=== PATIENT | female | born 1965 | race Caucasian/White ===

== ENCOUNTER 2016-08-09 09:11 | Observation (INO) | payer OTHER ==
--- NOTE | ~2016-08-09 | OR ---
Unit #: [id number] #: [id number] Patient: MIGDALIA TONY [id number] [facility]. [place], [place] [address] [id number] MR#: [id number] NAME: MIGDALIA TONY ROOM: 462 Date of Procedure: 08/09/2016 Admission Date: 08/09/2016 Surgeon: Oliverio Hollingsworth Jr., M.D. : 1965 Attending Physician: Oliverio Hollingsworth Jr., M.D. Referring Physician: Oliverio Hollingsworth Jr., M.D. Primary Care Physician: Samantha Guevara Aprn OPERATIVE REPORT INDICATIONS FOR PROCEDURE The patient is a 51-year-old white female, recently was noted to have some nodular areas in the left lobe of the thyroid and biopsy was taken, which was indeterminate. It was felt by the patient and me that she should probably have left lobectomy to be sure about the fact there is no cancer present. She is brought in this time at her request for this procedure. She understands the procedure including the risks, including that of injury to the recurrent laryngeal nerve with chronic hoarseness, bleeding, poor healing, and consents. PREOPERATIVE DIAGNOSIS Nodular mass of the left lobe of the thyroid, rule out occult malignancy. POSTOPERATIVE DIAGNOSIS Nodular mass of the left lobe of the thyroid, rule out occult malignancy, noting multiple small cystic areas. ANESTHESIA General with endotracheal intubation and 0.5% Marcaine with epinephrine locally. [employer] Pamela Hyde. PROCEDURE PERFORMED Left thyroid lobectomy. DESCRIPTION OF PROCEDURE The patient was positioned in supine position. After being anesthetized and intubated, she was prepped and draped in routine fashion for left thyroid lobectomy. A curvilinear incision was made approximately 2 fingerbreadths above the sternal notch and a crease in the skin 4 to 5 inches in length. This was carried down through the subcutaneous tissue through the platysma with the superior and inferior flaps being developed in routine fashion with #10 blade scalpel. A small amount of oozing was controlled with the Bovie cautery. The strap muscles were elevated from both lobes. The right lobe was palpated and felt to be normal. The left lobe had nodularity. The superior polar vessels were then hemoclipped and divided and the inferior polar vessels hemoclipped and divided, and the middle thyroid vein hemoclipped and divided. The thyroid was delivered up through the wound and the recurrent laryngeal nerve was well behind it in Unit #: [id number] #: [id number] Patient: MIGDALIA TONY the esophagotracheal sulcus. The inferior thyroid artery was hemoclipped and divided and the isthmus then divided and the specimen removed and sent to pathology. Hemostasis was checked for, there was no evidence of any bleeding. The clips were all intact with no evidence of any problems. One adrenal gland in the superior area was left intact. There was none seen on the inferior polar area. After hemostasis was again noted, the wound was irrigated. Small Brendan drain was placed in deeper aspect of the wound and brought out through the lateral aspect of the wound on the left. Midline was closed with a continuous 3-0 Vicryl suture and the platysma and subcutaneous tissue closed with interrupted 3-0 Vicryl sutures. Skin edges were approximated with stainless-steel skin clips and skin stapling device. Sterile dressings were applied externally. Estimated blood loss less than 50 mL. The patient received less than 1000 mL crystalloid solution during the procedure. Sponges and instrument counts were correct x3. There was 1 small Brendan drain used noted above. No complications. The patient was taken to the recovery room with stable vital signs in satisfactory condition. Dictated by... Oliverio Hollingsworth Jr., M.Eboni COFFEY/luis TD: 08/10/2016 02:21 JOB #: [id number] OPERATIVE REPORT X Oliverio Hollingsworth MD X PROCEDURE OPERATIVE NOTE
--- NOTE | ~2016-08-09 | EKG ---
PATIENT: MIGDALIA TONY UNIT #: [id number] Ventricular Rate: 60 BPM Atrial Rate: 60 BPM P-R Interval: 160 ms QRS Duration: 82 ms Q-T Interval: 404 ms QTC Calculation(Bezet): 404 ms P [place]: 64 degrees Calculated R [place]: 26 degrees Calculated T [place]: 50 degrees Diagnosis Line: Normal sinus rhythm Diagnosis Line: Normal ECG Diagnosis Line: No previous ECGs available Diagnosis Line: Confirmed by PETR KENDRICK MD ([id number]) on 08/12/2016 Diagnosis Line: 7:20:55 AM INTERPRETING MD: AROLDO ATKINS
--- NOTE | ~2016-08-09 | HP ---
Unit #: [id number] #: [id number] Patient: MIGDALIA TONY [id number] [address] [place], [place] [address] [id number] I MR#: [id number] NAME: MIGDALIA TONY ROOM: 46 Age: 51 Sex: F Admission Date: 08/09/2016 : 1965 Attending Physician: Oliverio Hollingsworth Jr., M.D. Referring Physician: lOiverio Hollingsworth Jr., M.D. Primary Care Physician: Samantha Guevara Aprn HISTORY AND PHYSICAL HISTORY OF PRESENT ILLNESS The patient is a 51-year-old white female who recently presented to the office with a history of having nodules on the left lobe of the thyroid for at least 6 months to a year or longer. She had a workup done with percutaneous needle biopsy which was indeterminate and the patient was given the choice of whether to have a left thyroid lobectomy or possibly just follow up conservatively. The patient has had radiation to her neck with previous history of lymphoma. She has elected to come in at this time for left thyroid lobectomy. PAST MEDICAL HISTORY 1. History of gastroesophageal reflux disease. 2. Previous back injury. PAST SURGICAL HISTORY 1. D and C. 2. Left axillary node dissection. 3. Left breast biopsy. 4. Biopsy of chest wall lesion. 5. EGD. 6. Left neck cyst. 7. Lipoma of the back. 8. Childbirth times two. SOCIAL HISTORY The patient is and lives at home with family. Normally good appetite. No recent weight change. She is a nonsmoker and nondrinker. FAMILY HISTORY Noncontributory according to the patient. ALLERGIES No known drug allergies. TRANSFUSIONS None in the past. CURRENT MEDICATIONS She is on several medications at home and this is provided on the nursing sheet. REVIEW OF SYSTEMS Twelve systems review has been performed, which is unremarkable except for that in present illness. Unit #: [id number] #: [id number] Patient: MIGDALIA TONY PHYSICAL EXAMINATION GENERAL: The patient is a well-developed, thin, 51-year-old white female in no acute distress. VITALS: Temperature afebrile, blood pressure 155/92, heart rate 74, respiratory rate 16. HEENT: Unremarkable. There is some nodularity of the left lobe of the thyroid, but no lymphadenopathy. LUNGS: Clear bilaterally. CHEST: Equal bilateral expansion with bilateral equal breath sounds. HEART: Regular rhythm without murmurs or gallops. No evidence of cardiomegaly clinically. ABDOMEN: Soft, nontender and benign. EXTREMITIES: Full range of motion without limitation. There is no evidence of peripheral edema. BACK: No CVA tenderness. NEUROLOGIC: Grossly intact. ASSESSMENT/PLAN The patient has multiple nodules in the left lobe of the thyroid with a past history of radiation exposure of her neck. She wants to go ahead with left thyroid lobectomy. She understands the procedure, including the risks including that of injury to the recurrent laryngeal nerve and chronic hoarseness, infection and poor healing and consents. Dictated by Oliverio Hollingsworth Jr., M.D. ERLINDA/phil TD: 08/20/2016 10:15 JOB #: [id number] HISTORY AND PHYSICAL Page 1 of 1 X Oliverio Hollingsworth MD X HISTORY AND PHYSICAL
[~2016-08-09 09:11] MED LIST: BACTRIM DS TABL1 TA1 PO; IBUPROFEN800 MG PO; LORTAB 101 TAB 10/5; METOPROLOL SUCC50 MG PO; MULTI-VITAMIN1 EAC1 PO; NO MEDICATIONS; PERCOCET5/325 PO; PREVACID PO; SINUS
[2016-08-09 10:42] LABS: BLOOD UREA NITROGEN 14 mg/dL (9-23); CALCIUM SERUM 9.5 mg/dL (8.4-10.2); CARBON DIOXIDE 25 mmol/L (22-31); CHLORIDE 108 mmol/L (100-111); CREATININE SERUM 0.8 mg/dL (0.6-1.4); GLOM FILT RATE Estimated ABOVE60 mL/min (>60); GLUCOSE FASTING 98 mg/dL (70-110); SODIUM 139 mmol/L (135-145)
[2016-08-10] MEDS ORDERED: PERCOCET 7.5/321 TAB PO (09:29)
[2016-12-17] MEDS ORDERED: XYZAL5 MG PO (14:11)
== END 2016-08-10 11:42 | disposition home or self-care (01) | DRG 645 ==
LOC: CSUR 09:11 → CPACUOF 09:33 → C4C 16:35
PROVIDERS: Surgery
DX: E04.2 Nontoxic multinodular goiter (principal); E06.3 Autoimmune thyroiditis; Z85.71 Personal history of Hodgkin lymphoma; K21.9 Gastro-esophageal reflux disease without esophagitis; I10 Essential (primary) hypertension; G47.33 Obstructive sleep apnea (adult) (pediatric); M19.90 Unspecified osteoarthritis, unspecified site; Z87.891 Personal history of nicotine dependence
CPT/HCPCS: 80048; 82310; 84703; 88307; 93005; 94760; 96374; 96376; G0378; J0330; J1100; J1170; J1885; J2250; J2270; J2405; J2710; J3010

== ENCOUNTER → 2016-11-08 | Outpatient (CLI) | payer OTHER ==
[~2016-11-08] MED LIST changes: +CALCIUM CITRAT1 EAC2 PO; +HYDROCODON-ACE1 EAC5 PO; +LEVOTHYROXINE100 MC1 PO; +LOPRESSOR PO; +PERCOCET 7.5/321 TAB PO; +XYZAL5 MG PO
--- NOTE | ~2016-11-08 | US128 ---
[id number] [facility] [address] [facility]. [place], [place] [address] [id number] O MR#: [id number] Acc #: [id number] NAME: MIGDALIA TONY : 1965 SEX: F STUDY DATE/TIME: 11/08/2016 13:36 UNIT: CGUS ROOM: STUDY DESCRIPTION: Thyroid Attending Physician: Saeid Godinez M.D. Referring Physician: Saeid Godinez M.D. Ordering Physician: Saeid Godinez M.D. Primary Care Physician: Samantha Guevara Aprn MEDICAL IMAGING REPORT This report is preliminary unless electronic signature is present EXAM Thyroid ultrasound, 11/08/2016. HISTORY Left thyroidectomy for thyroid carcinoma. FINDINGS The left thyroid lobe is surgically absent as per patient history. The right lobe measures 4.2 cm x 1.5 cm x 1.3 cm and the isthmus measured 5 mm in the AP direction. The right thyroid lobe is heterogeneous in echotexture. In the upper pole of the right lobe there is a 1.8 cm x 1.5 cm x 1.4 cm heterogeneous solid nodule containing a small focus of calcium in its center. This was not clearly visualized on the previous exam of 07/19/2016. Correlation with ultrasound-guided fine needle aspiration of the nodule is recommended to exclude thyroid neoplasm. There are no masses extrinsic to the thyroid. Normal blood flow is seen throughout the remaining thyroid. IMPRESSION 1. 1.7 cm solid nodule in the upper pole of the right thyroid lobe containing a small focus of calcium in its center. Ultrasound-guided fine needle aspiration of the nodule is recommended to exclude thyroid neoplasm. 2. Surgical absence of the left thyroid lobe. STAT * RESULT Dictated by... Rashaun Woodward M.D. THIS IS AN ELECTRONICALLY VERIFIED REPORT Rashaun Woodward M.D. at 11/12/2016 8:11 AM MICHOACANO/peggy TD: 11/11/2016 09:38 JOB #: [id number] MEDICAL IMAGING REPORT Page 1 of 1 COPY
== END | disposition home or self-care (01) ==
LOC: CGUS 13:01
DX: C81.90 Hodgkin lymphoma, unspecified, unspecified site (principal); Z85.850 Personal history of malignant neoplasm of thyroid
CPT/HCPCS: 76536

== ENCOUNTER 2016-12-19 09:54 | Observation (INO) | payer OTHER ==
[~2016-12-19] VITALS: Ht 177.8 cm; Wt 116.5 kg
--- NOTE | ~2016-12-19 | OR ---
Unit #: [id number] #: [id number] Patient: MIGDALIA TONY [id number] [facility]. [place], [place] [address] [id number] I MR#: [id number] NAME: MIGDALIA TONY ROOM: [facility] Date of Procedure: 12/19/2016 Admission Date: 12/19/2016 Surgeon: Oliverio Hollingsworth Jr., M.D. : 1965 Attending Physician: Oliverio Hollingsworth Jr., M.D. Primary Care Physician: Samantha Mcmullen Aprn OPERATIVE REPORT JOB NOTE: CC: SAMANTHA MCMULLEN APRN INDICATIONS FOR PROCEDURE The patient is a 51-year-old white female, who is 3 to 4 months status post left thyroid lobectomy. She was noted to have several small areas of papillary cancer less than 3 mm in diameter and now has developed a nodule in the right lobe of the thyroid and it was felt by Oncology as well as her family physician that she have this right lobe removed as well. She is brought in this time for right thyroid lobectomy. She understands the procedure including the risks, including that of injury to the recurrent laryngeal nerve with chronic hoarseness, bleeding, infection, poor healing, and hypoparathyroidism with the need for prolonged calcium, and consents. PREOPERATIVE DIAGNOSIS Possible cancer of the right lobe of the thyroid. POSTOPERATIVE DIAGNOSIS Possible cancer of the right lobe of the thyroid, noting a nodular area of the thyroid. ANESTHESIA General with endotracheal intubation and 0.5% Marcaine with epinephrine locally. [employer] Santos Steinberg M.D. PROCEDURE PERFORMED Right thyroid lobectomy. DESCRIPTION OF PROCEDURE The patient was positioned in supine position. After being anesthetized and intubated, she was prepped and draped in routine fashion for right thyroid lobectomy. A small curvilinear incision was made through the scar from her previous surgery. This was carried down through subcutaneous tissue down through the platysma to the strap muscles and the strap muscles were and the right lobe of the thyroid was exposed. The right middle thyroid vein was hemoclipped and divided. The superior and inferior poles were taken down with special attention taken for any parathyroids. There were at least 2 small what appeared to be parathyroid nodules preserved with no evidence of any injury to the vascular supply to Unit #: [id number] #: [id number] Patient: MIGDALIA TONY. After the thyroid was freed up, it was mobilized off the trachea and the recurrent laryngeal nerve was identified and well away from the area of dissection with no evidence of any injuries. After the lobe was removed, it was sent to pathology. Hemostasis was achieved with both Bovie cautery and small hemoclips and after total hemostasis was noted, the wound was irrigated. The small [place] drain was placed, brought out through the lateral aspect of the wound and the platysma was then closed with interrupted 3-0 Vicryl sutures. The wound was irrigated. After hemostasis achieved with Bovie cautery, skin edges were approximated with stainless-steel skin clips and skin stapling device. Sterile dressings were applied externally. Estimated blood loss less than 75 mL. The patient received less than 1500 mL crystalloid solution during the procedure. Sponges and instruments counts were correct x3. One small [place] drain was used in the deeper aspect of the neck, brought out laterally in the wound. There were no complications. The patient was taken to the recovery room with stable vital signs in satisfactory condition. Dictated by... Oliverio Hollingsworth Jr. MEran COFFEY/luis TD: 12/19/2016 18:09 JOB #: [id number] OPERATIVE REPORT Page 1 of 1 X Oliverio Hollingsworth MD X PROCEDURE OPERATIVE NOTE
[~2016-12-19 09:54] MED LIST changes: -CALCIUM CITRAT1 EAC2 PO; -HYDROCODON-ACE1 EAC5 PO; -LEVOTHYROXINE100 MC1 PO; -LOPRESSOR PO
[2016-12-19 11:14] LABS: BUN/CREATININE RATIO 18.88; CALCIUM SERUM 8.9 mg/dL (8.4-10.2); CREATININE SERUM 0.9 mg/dL (0.6-1.4); GLOM FILT RATE Estimated 75.1 mL/min (>60); POTASSIUM 4.1 mmol/L (3.5-5.1)
[2016-12-19] MEDS ORDERED: LOPRESSOR PO (11:45)
[2016-12-19] MEDS ORDERED: CALCIUM CITRAT1 EAC2 PO (11:47)
[2016-12-20] MEDS ORDERED: HYDROCODON-ACE1 EAC5 PO (07:28)
[2016-12-20] MEDS ORDERED: LEVOTHYROXINE100 MC1 PO (07:37)
== END 2016-12-20 11:08 | disposition home or self-care (01) | DRG 645 ==
LOC: CSUR 09:54 → CPACUOF 14:45 → CSUR 14:45 → CPACUOF 14:45 → C4B 14:45 → CPACUOF 15:19 → CSUR 15:19 → C4B 16:55 → CPACUOF 16:55 → C4B 16:55
PROVIDERS: Surgery
DX: C73 Malignant neoplasm of thyroid gland (principal); K21.9 Gastro-esophageal reflux disease without esophagitis; I10 Essential (primary) hypertension; Z87.891 Personal history of nicotine dependence
CPT/HCPCS: 80048; 82310; 84703; 88307; 94760; 96374; G0378; J0330; J1650; J1885; J2250; J2270; J2405; J2710; J3010